=== PATIENT | female | born 1970 | race Caucasian/White ===

== ENCOUNTER 2016-07-04 11:38 | Emergency (ER) | payer OTHER ==
[~2016-07-04] VITALS: Ht 165.1 cm; Wt 83.9 kg
[~2016-07-04 11:38] MED LIST: MULTI VITAMINS1 TAB PO; PHENERGAN 25MG.25 M1 PO
[2016-07-04] MEDS ORDERED: AMOXICILLIN 50500 MG PO (12:00)
--- NOTE | 2016-07-04 12:14 | Urgent Treatment Center Report ---
History of Present Issue Date/Time Seen by Provider 07/04/16 1209 Visit Reason Pt arrived:Walked Presenting Problem:SORE THROAT AND HOARSENESS. ANTIBIOTICS SUNDAY FOR EAR INFECTION. SYMPTOMS HAVE GOTTEN WORSE. Location if Accident: Onset of symptoms date/time:/ or onset unknown for:MEDICAL HX UNKNOWN Have you (or family members/close friends) recently traveled outside the [place]? N If Yes, where/when: Have you had exposure to infectious disease within the past month? TB? Other? Specify: Patient states that she has been being treated by family doctor for ear infection in the left ear and laryngitits states that she is on Augmentin but seems like the ear is getting worse. States that she is hurting more than what she was and now her throat is hurting too and her recently had strep throat ALLERGIES Coded Allergies: No Known Allergies (07/04/16) Home Medications Active Scripts Promethazine Hydrochloride (Phenergan 25MG Tab) 25 MG PO Q6H PRN #12 Prov: 01/04/11 Reported Medications Multiple Vitamin (Multi Vitamins) 1 TAB PO DAILY Amoxicillin Trihydrate (Amoxicillin 500MG) 500 MG PO BID History Medical History General Angina: No [place]: No Hypertension? No Hyperlipidemia? No COPD? No Asthma? No CVA? No Seizures? No Diabetes? No GB Disease: No MRSA? No TB? No Cancer? No Immunization HX DT/Tetanus 1-4 YRS Surgical Hx Previous Surgery?Y GASTRIC BYPASS GALLBLADDER REMOVED X3 TOTAL BODY LIFT Social History Smoking Hx Smoker: Never Smoker Tobacco: No Alcohol Alcohol: No Review of Systems All Other Systems Reviewed and Negative ENT ear pain, nose congestion, throat pain. Respiratory cough Physical Exam Vital Signs Vital Signs Date Time Temp Pulse Resp B/P Pulse O2 O2 Flow FiO2 Ox Delivery Rate 07/04 1157 98.3 55 18 114/73 100 General Appearance normal appearance Ear, Nose, Throat tonsillar swelling, left ear bright red, TM usable to visualize, throat red, irritated Respiratory Status Yes: trachea midline, chest symmetrical, non tender chest. No: respiratory distress. 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 No Results/Orders Laboratory Tests 07/04/16 1225: Group A Strep Screen NOT DETECTED Current Medication Orders Sig/Dariela Start time Last Medication Dose Route Stop Time Status Admin Ceftriaxone Sodium 0 .STK-MED ONE 07/04 1217 DC .ROUTE Lidocaine HCl 0 .STK-MED ONE 07/04 1217 DC IJ Ceftriaxone Sodium 500 MG ONCE ONE 07/04 1215 DC / IM 07/04 1216 1230 Lidocaine HCl 0 ONCE ONE 07/04 1215 DC 07/04 IM 07/04 1216 1231 Orders Procedure Date/time Status [facility] STREP SCREEN 07/04 1225 Complete Progress [facility] Progress Notes Date 07/04/16 Time 1244 Comment Strep test reviewed negative finding patient being dc'd home Departure Departure Time of Disposition 1244 Disposition DC Home or Self Care(routine) Clinical Impression Primary Impression: Otitis media Qualifiers: Otitis media type: unspecified Laterality: left Chronicity: unspecified Qualified Code: H66.92 - Otitis media, unspecified, left ear Secondary Impressions: Laryngitis Condition STABLE Referrals SARAH VALENZUELA (Family) Patient Instructions DI for Laryngitis, DI for Otitis Media (Middle Ear Infection)-Child Additional Instructions Gargle warm salt water for throat irritation Over the counter Motrin or Tylenol for fever or pain Follow up with family doctor Return if needed Discharge Counseling Counseled pt/family regarding diagnosis, test results, medications/RX, home care, follow up needs Prescriptions Current Visit Scripts Methylprednisolone (Medrol Dose Michael) 4 MG PO UD #1 MICHAEL TAKE DIRECTED ON PACKAGING Fluticasone Propionate (Flonase 50 Mcg Nasal [place]) 2 SPRAY NA DAILY #1 BOT at 1247
--- NOTE | 2016-07-04 12:14 | Urgent Treatment Center Report ---
History of Present Issue Date/Time Seen by Provider 07/04/16 1209 Visit Reason Pt arrived:Walked Presenting Problem:SORE THROAT AND HOARSENESS. ANTIBIOTICS SUNDAY FOR EAR INFECTION. SYMPTOMS HAVE GOTTEN WORSE. Location if Accident: Onset of symptoms date/time:/ or onset unknown for:MEDICAL HX UNKNOWN Have you (or family members/close friends) recently traveled outside the [place]? N If Yes, where/when: Have you had exposure to infectious disease within the past month? TB? Other? Specify: Patient states that she has been being treated by family doctor for ear infection in the left ear and laryngitits states that she is on Augmentin but seems like the ear is getting worse. States that she is hurting more than what she was and now her throat is hurting too and her recently had strep throat ALLERGIES Coded Allergies: No Known Allergies (07/04/16) Home Medications Active Scripts Promethazine Hydrochloride (Phenergan 25MG Tab) 25 MG PO Q6H PRN #12 Prov: 01/04/11 Reported Medications Multiple Vitamin (Multi Vitamins) 1 TAB PO DAILY Amoxicillin Trihydrate (Amoxicillin 500MG) 500 MG PO BID History Medical History General Angina: No [place]: No Hypertension? No Hyperlipidemia? No COPD? No Asthma? No CVA? No Seizures? No Diabetes? No GB Disease: No MRSA? No TB? No Cancer? No Immunization HX DT/Tetanus 1-4 YRS Surgical Hx Previous Surgery?Y GASTRIC BYPASS GALLBLADDER REMOVED X3 TOTAL BODY LIFT Social History Smoking Hx Smoker: Never Smoker Tobacco: No Alcohol Alcohol: No Review of Systems All Other Systems Reviewed and Negative ENT ear pain, nose congestion, throat pain. Respiratory cough Physical Exam Vital Signs Vital Signs Date Time Temp Pulse Resp B/P Pulse O2 O2 Flow FiO2 Ox Delivery Rate 07/04 1157 98.3 55 18 114/73 100 General Appearance normal appearance Ear, Nose, Throat tonsillar swelling, left ear bright red, TM usable to visualize, throat red, irritated Respiratory Status Yes: trachea midline, chest symmetrical, non tender chest. No: respiratory distress. Cardiovascular normal exam, regular rate/rhythm, no peripheral edema, no gallop Neurologic alert, key maker II-XII nml as tested, normal exam Medical Decision Making LABS/Meds/Orders Pt receiving controlled substance in ED? No Results/Orders Laboratory Tests 07/04/16 1225: Group A Strep Screen NOT DETECTED Current Medication Orders Sig/Dariela Start time Last Medication Dose Route Stop Time Status Admin Ceftriaxone Sodium 0 .STK-MED ONE 07/04 1217 DC .ROUTE Lidocaine HCl 0 .STK-MED ONE 07/04 1217 DC IJ Ceftriaxone Sodium 500 MG ONCE ONE 07/04 1215 DC / IM 07/04 1216 1230 Lidocaine HCl 0 ONCE ONE 07/04 1215 DC 07/04 IM 07/04 1216 1231 Orders Procedure Date/time Status [facility] STREP SCREEN 07/04 1225 Complete Progress [facility] Progress Notes Date 07/04/16 Time 1244 Comment Strep test reviewed negative finding patient being dc'd home Departure Departure Time of Disposition 1244 Disposition DC Home or Self Care(routine) Clinical Impression Primary Impression: Otitis media Qualifiers: Otitis media type: unspecified Laterality: left Chronicity: unspecified Qualified Code: H66.92 - Otitis media, unspecified, left ear Secondary Impressions: Laryngitis Condition STABLE Referrals SARAH VALENZUELA (Family) Patient Instructions DI for Laryngitis, DI for Otitis Media (Middle Ear Infection)-Child Additional Instructions Gargle warm salt water for throat irritation Over the counter Motrin or Tylenol for fever or pain Follow up with family doctor Return if needed Discharge Counseling Counseled pt/family regarding diagnosis, test results, medications/RX, home care, follow up needs Prescriptions Current Visit Scripts Methylprednisolone (Medrol Dose Michael) 4 MG PO UD #1 MICHAEL TAKE DIRECTED ON PACKAGING Fluticasone Propionate (Flonase 50 Mcg Nasal [place]) 2 SPRAY NA DAILY #1 BOT at 1247
[2016-07-04] MEDS ORDERED: FLONASE 50 MCG16 GM (12:47)
[2016-07-04] MEDS ORDERED: MEDROL 4MG. DOSE4 MG PO (12:47)
[2016-07-04 12:51] VITALS: BP 114/73
== END 2016-07-04 12:54 | disposition home or self-care (01) ==
LOC: UTC 11:38
DX: H66.92 Otitis media, unspecified, left ear (principal)